=== PATIENT | female | born 1970 | race Caucasian/White ===

== ENCOUNTER 2023-05-26 13:56 | Emergency (ER) | payer MEDICAID ==
[~2023-05-26] VITALS: Ht 160 cm; Wt 75.0 kg
[2023-05-26 14:04] VITALS: TEMP 98.1; O2SAT 95
[2023-05-26] MEDS: METOCLOPRAMIDE HCL 10MG/2ML VIAL IV ONE (15:08)
[2023-05-26] MEDS: KETOROLAC 30MG/ML VIAL IV STA (15:08)
[2023-05-26 15:52] LABS: BASOPHILS % 0.2 % (0.0-2.0); EOSINOPHILS % 6.7 % (0.0-5.0); HEMATOCRIT. 38.8 % (36.0-48.0); HEMOGLOBIN. 13.3 g/dL (12.0-16.0); LYMPHOCYTES % 18.5 % (20.0-50.0); MEAN CORPUSCULAR HEMOGLOBIN 30.6 pg (28.0-32.0); MEAN CORPUSCULAR HGB CONC 34.3 g/dL (31.0-37.0); MEAN CORPUSCULAR VOLUME 89.2 fL (81.0-99.0); MEAN PLATELET VOLUME 8.5 fl (7.4-10.4); MONOCYTES % 8.4 % (2.0-8.0); NEUTROPHILS % 66.2 % (40.0-76.0); PLATELET 231 x1000/uL (130-400); RED BLOOD CELL COUNT 4.35 mill/uL (4.2-5.4); RED CELL DISTRIBUTION WIDTH 13.4 % (11.6-14.6); WHITE BLOOD COUNT 7.4 x1000/uL (4.5-11.0)
[2023-05-26 16:01] LABS: INR 0.9; PROTHROMBIN TIME 10.6 sec (9.6-11.0)
[2023-05-26 16:23] LABS: ALANINE AMINOTRANSFERASE 28 IU/L (10-49); ALBUMIN 4.3 g/dL (3.2-4.8); ASPARTATE AMINOTRANSFERASE 31 IU/L (<34); BILIRUBIN TOTAL 0.4 mg/dL (0.1-1.0); CARBON DIOXIDE 26 mEq/L (21-32); CHLORIDE 106 mEq/L (98-107); CREATININE 0.6 mg/dL (0.6-1.0); GLUCOSE 98 mg/dL (70-105); POTASSIUM 3.6 mEq/L (3.5-5.1); SODIUM 139 mEq/L (136-145); TROPONIN I HIGH SENSITIVITY 9 ng/L (3.0-34); UREA NITROGEN BLOOD 13 mg/dL (9-23)
[2023-05-26 16:25] LABS: ETHANOL BLOOD < 10 mg/dL (<10)
[2023-05-26] MEDS: DIPHENHYDRAMINE 50MG/ML VIAL IV ONE (18:49)
[2023-05-26 18:53] VITALS: BP 117/99; PULSE 74; RESP 17
== END 2023-05-26 19:10 | disposition home or self-care (01) ==
LOC: ER 13:56
DX: G43.909 Migraine, unspecified, not intractable, without status migrainosus (principal)
CPT/HCPCS: 80053; 80320; 83690; 85025; 85610; 84484; 36415; 71045; 70450; 96374; 96375; 99285; J1200; J1885; J2765; G0480